=== PATIENT | male | born 1945 | race Caucasian/White ===

== ENCOUNTER → 2018-05-29 | Outpatient (CLI) | payer MEDICARE ==
[~2018-05-29] MED LIST: ASPI-496 PO; CELE200C PO; GLUC15006 PO; HYDR1TAB12 PO; LISI-167 PO; METO-93 PO; OMEG500C PO; OMNIPAQUE 350 MG/ML, 100ML BOTTLE ONE; OXYC1TAB7 PO; PANT40GR PO; RIVA20TA PO; ROSU5TAB PO
== END | disposition home or self-care (01) ==
LOC: CFH 11:54
PROVIDERS: ATTEND Radiology Diagnostic Radiology
DX: I25.10 Atherosclerotic heart disease of native coronary artery without angina pectoris (principal); R91.1 Solitary pulmonary nodule; I35.1 Nonrheumatic aortic (valve) insufficiency; I77.89 Other specified disorders of arteries and arterioles
CPT/HCPCS: 75574; 82565; Q9967